=== PATIENT | female | born 1990 | race Caucasian/White ===

== ENCOUNTER 2017-08-02 14:45 | Emergency (ER) | payer OTHER ==
[~2017-08-02] VITALS: Ht 170.2 cm; Wt 149.7 kg
[2017-08-02] MEDS ORDERED: LANTUS100 UNIT/M SUBQ (15:00)
[2017-08-02] MEDS ORDERED: NOVOLOG100 UNIT/1 SUBQ (15:03)
[2017-08-02] MEDS ORDERED: NEURONTIN300 MG PO (15:03)
[2017-08-02] MEDS ORDERED: METFORMIN HCL500 MG PO (15:03)
[2017-08-02] MEDS ORDERED: TRAMADOL 50 MG50 MG PO (16:48)
[2017-08-02] MEDS ORDERED: NAPROSYN500 MG PO (16:48)
[2017-08-02 17:02] VITALS: BP 152/92
== END 2017-08-02 17:03 | disposition home or self-care (01) ==
LOC: M.ERS 14:45
DX: S32.2XXA Fracture of coccyx, initial encounter for closed fracture (principal); S89.81XA Other specified injuries of right lower leg, initial encounter; E11.9 Type 2 diabetes mellitus without complications; E66.01 Morbid (severe) obesity due to excess calories; Z68.43 Body mass index [BMI] 50.0-59.9, adult; Z79.4 Long term (current) use of insulin; W07.XXXA Fall from chair, initial encounter; Y93.89 Activity, other specified; Y92.89 Other specified places as the place of occurrence of the external cause; Y99.8 Other external cause status